=== PATIENT | male | born 1955 | race Caucasian/White ===

== ENCOUNTER 2021-10-12 17:54 | Inpatient (IN) ==
[2021-10-12 18:41] LABS: Basophils % 0.1 %; Eosinophils % 0.2 %; Hematocrit 38.1 % (37.5-50.1); Hemoglobin 12.5 g/dL (12.9-16.9); Immature Granulocytes % 0.5 % (0-4); Lymphocytes # 0.8 K/mcL (0.6-4.6); Lymphocytes % 10.1 %; Mean Corpuscular HGB Conc 32.8 g/dL (31.6-35.5); Mean Corpuscular Hemoglobin 31.1 pg (28.0-33.3); Mean Corpuscular Volume 94.8 fL (83.0-100.0); Mean Platelet Volume 9.3 fL (9.4-12.4); Monocytes # 0.6 K/mcL (0.0-1.3); Monocytes % 7.9 %; Neutrophils # 6.6 K/mcL (1.6-8.9); Platelet Count 134 K/mcL (140-400); Red Blood Count 4.02 M/mcL (4.19-5.50); Red Cell Distribution Width 12.4 % (11.5-14.5); Segmented Neutrophils % 81.2 %; White Blood Count 8.1 K/mcL (4.3-11.1)
[2021-10-12 18:59] LABS: Alanine Aminotransferase 7 Units/L (7-52); Albumin 3.9 g/dL (3.5-5.7); Albumin/Globulin Ratio 1.6 (1.1-2.2); Alkaline Phosphatase 32 Units/L (34-104); Aspartate Amino Transferase 12 Units/L (13-39); BUN/Creatinine Ratio 21 (6-26); Bilirubin,Total 0.7 mg/dL (0.3-1.0); Blood Urea Nitrogen 20 mg/dL (8-23); Calcium 9.1 mg/dL (8.6-10.3); Carbon Dioxide 27 mEq/L (23-29); Chloride 102 mEq/L (98-107); Globulin 2.4 g/dL (2.4-3.5); Glucose 87 mg/dL (70-105); Osmolality,Calculated 278 (280-300); Potassium 3.6 mEq/L (3.5-5.1); Sodium 133 mEq/L (136-145); Total Protein 6.3 g/dL (6.4-8.9); eGFR For African Americans > 60 (> 60); eGFR For Non-African Americans > 60 (> 60)
[2021-10-12 19:13] LABS: Bilirubin,Urine Negative (Negative); Blood,Urine Negative (Negative); Clarity,Urine Clear (Clear); Color,Urine Yellow (Yellow); Glucose,Urine (UA) >=1000 mg/dL (Normal); Ketones,Urine Negative (Negative); Leukocyte Esterase,Urine Negative (Negative); Mucus,Urine Few per lpf (None-Few); Nitrite,Urine Negative (Negative); PH,Urine 5.5 pH Units (5.0-8.0); Protein,Urine Trace mg/dL (Neg-Trace); RBC,Urine 0-3 per hpf (0-3); Specific Gravity,Urine > 1.030 (1.010-1.025); Squamous Epithelial Cell,Urine Few per hpf (None-Few); Urobilinogen,Urine Normal (Normal); WBC,Urine 0-3 per hpf (0-3)
[2021-10-13] MEDS ORDERED: Acetaminophen 325 MG TABLET PO PRN (02:56)
[2021-10-13] MEDS ORDERED: Ondansetron 4 MG/2 ML VIAL IVP PRN (02:56)
[2021-10-13] MEDS ORDERED: Naloxone 0.4 MG/ML INJ IVP PRN (02:56)
[2021-10-13] MEDS ORDERED: *HR* Dextrose 50 % in Water (Syg) 50 ML SYRINGE IVP PRN (02:59)
[2021-10-13] MEDS ORDERED: Dextrose Gel 15 GM/37.5 ML TUBE PO PRN ×2 (02:59)
[2021-10-13] MEDS ORDERED: D5% in Water 1,000 ML IVC PRN (02:59)
[2021-10-13 03:46] LABS: Basophils % 0.2 %; Eosinophils # 0.1 K/mcL (0.0-0.6); Eosinophils % 0.8 %; Hematocrit 39.1 % (37.5-50.1); Hemoglobin 12.7 g/dL (12.9-16.9); Immature Granulocytes % 0.3 % (0-4); Lymphocytes % 15.7 %; Mean Corpuscular HGB Conc 32.5 g/dL (31.6-35.5); Mean Corpuscular Hemoglobin 31.1 pg (28.0-33.3); Mean Corpuscular Volume 95.8 fL (83.0-100.0); Mean Platelet Volume 9.6 fL (9.4-12.4); Monocytes # 0.6 K/mcL (0.0-1.3); Monocytes % 8.7 %; Neutrophils # 4.9 K/mcL (1.6-8.9); Platelet Count 128 K/mcL (140-400); Red Blood Count 4.08 M/mcL (4.19-5.50); Red Cell Distribution Width 12.6 % (11.5-14.5); Segmented Neutrophils % 74.3 %; White Blood Count 6.6 K/mcL (4.3-11.1)
[2021-10-13 04:07] LABS: Alanine Aminotransferase 12 Units/L (7-52); Albumin 3.8 g/dL (3.5-5.7); Albumin/Globulin Ratio 1.5 (1.1-2.2); Alkaline Phosphatase 30 Units/L (34-104); Aspartate Amino Transferase 12 Units/L (13-39); BUN/Creatinine Ratio 21 (6-26); Bilirubin,Total 0.8 mg/dL (0.3-1.0); Blood Urea Nitrogen 18 mg/dL (8-23); Calcium 8.8 mg/dL (8.6-10.3); Carbon Dioxide 28 mEq/L (23-29); Chloride 102 mEq/L (98-107); Globulin 2.6 g/dL (2.4-3.5); Glucose 71 mg/dL (70-105); Magnesium 1.8 mg/dL (1.6-2.6); Osmolality,Calculated 284 (280-300); Phosphorous 2.4 mg/dL (2.7-4.5); Potassium 3.6 mEq/L (3.5-5.1); Sodium 137 mEq/L (136-145); Total Protein 6.4 g/dL (6.4-8.9); eGFR For African Americans > 60 (> 60); eGFR For Non-African Americans > 60 (> 60)
[2021-10-13] MEDS: Insulin LISPRO 300 UNITS/3 ML VIAL SUBQ SCH ×4 (08:39→20:01)
[2021-10-13] MEDS: Aspirin Enteric Coated 81 MG Tablet PO SCH (08:40)
[2021-10-13 08:46] LABS: ABG Base Excess 2 mEq/L (-2 to 3); ABG HCO3 27 mEq/L (21-27); ABG Oxygen Saturation 91 % (95-98); ABG PCO2 42 mmHg (35-45); ABG PH 7.42 pH Units (7.32-7.45); ABG PO2 59 mmHg (85-104); ABG TCO2 28 mEq/L (20-26)
[2021-10-13] MEDS ORDERED: Metoprolol XL (24 HR) Succ 50 MG TAB.ER.24H PO SCH (09:00)
[2021-10-13] MEDS: Carbidopa/Levodopa ER 50/200 TABLET PO SCH ×4 (10:33→20:03)
[2021-10-13] MEDS ORDERED: Ammonium Lactate 30 APPL/225 GM BOTTLE TP PRN (10:42)
[2021-10-13] MEDS: Ranolazine 500 MG TAB.ER.12H PO SCH (20:01)
[2021-10-13] MEDS: lamoTRIgine 100 MG TABLET PO SCH (20:02)
[2021-10-13] MEDS: Famotidine 20 MG TABLET PO SCH (20:03)
[2021-10-13] MEDS: Melatonin 3 MG TABLET PO SCH (20:03)
[2021-10-13] MEDS: lamoTRIgine 25 MG TABLET PO SCH (20:04)
[2021-10-13] MEDS: Amantadine Oral Soln 50 MG/5 ML UDC PO SCH (20:04)
[2021-10-13] MEDS ORDERED: Insulin DETEMIR 100 UNIT/ML X5UNITS SUBQ SCH ×2 (21:00)
[2021-10-14] MEDS: Insulin LISPRO 300 UNITS/3 ML VIAL SUBQ SCH ×4 (09:02→20:07)
[2021-10-14] MEDS: Finasteride 5 MG TABLET PO SCH (09:03)
[2021-10-14] MEDS: Cholecalciferol (D-3) 1,000 UNIT (25MCG) TABLET PO SCH (09:03)
[2021-10-14] MEDS: Carbidopa/Levodopa ER 50/200 TABLET PO SCH ×4 (09:03→20:04)
[2021-10-14] MEDS: Aspirin Enteric Coated 81 MG Tablet PO SCH (09:04)
[2021-10-14] MEDS: Metoprolol XL (24 HR) Succ 50 MG TAB.ER.24H PO SCH (09:05)
[2021-10-14] MEDS: Isosorbide MONOnitrate (24 HR) 60 MG TAB.ER.24H PO SCH (09:05)
[2021-10-14] MEDS: Famotidine 20 MG TABLET PO SCH ×2 (09:05→20:06)
[2021-10-14] MEDS: lamoTRIgine 25 MG TABLET PO SCH ×2 (09:06→20:04)
[2021-10-14] MEDS: Ranolazine 500 MG TAB.ER.12H PO SCH ×2 (09:06→20:06)
[2021-10-14] MEDS: lamoTRIgine 100 MG TABLET PO SCH ×2 (09:06→20:06)
[2021-10-14] MEDS: Loratadine 10 MG TABLET PO SCH (09:07)
[2021-10-14] MEDS: Amantadine Oral Soln 50 MG/5 ML UDC PO SCH (20:03)
[2021-10-14] MEDS: Melatonin 3 MG TABLET PO SCH (20:04)
[2021-10-14] MEDS ORDERED: Insulin DETEMIR 100 UNIT/ML X5UNITS SUBQ SCH (21:00)
[2021-10-15 01:30] LABS: Basophils % 0.3 %; Eosinophils # 0.1 K/mcL (0.0-0.6); Eosinophils % 1.9 %; Hematocrit 37.5 % (37.5-50.1); Hemoglobin 12.6 g/dL (12.9-16.9); Immature Granulocytes % 0.6 % (0-4); Lymphocytes # 0.8 K/mcL (0.6-4.6); Lymphocytes % 20.7 %; Mean Corpuscular HGB Conc 33.6 g/dL (31.6-35.5); Mean Corpuscular Hemoglobin 31.7 pg (28.0-33.3); Mean Corpuscular Volume 94.2 fL (83.0-100.0); Mean Platelet Volume 9.6 fL (9.4-12.4); Monocytes # 0.5 K/mcL (0.0-1.3); Neutrophils # 2.3 K/mcL (1.6-8.9); Platelet Count 152 K/mcL (140-400); Red Blood Count 3.98 M/mcL (4.19-5.50); Red Cell Distribution Width 12.3 % (11.5-14.5); Segmented Neutrophils % 62.5 %; White Blood Count 3.6 K/mcL (4.3-11.1)
[2021-10-15 01:43] LABS: BUN/Creatinine Ratio 25 (6-26); Blood Urea Nitrogen 26 mg/dL (8-23); Calcium 8.9 mg/dL (8.6-10.3); Carbon Dioxide 27 mEq/L (23-29); Chloride 103 mEq/L (98-107); Glucose 121 mg/dL (70-105); Osmolality,Calculated 288 (280-300); Potassium 4.3 mEq/L (3.5-5.1); Sodium 136 mEq/L (136-145); eGFR For African Americans > 60 (> 60); eGFR For Non-African Americans > 60 (> 60)
[2021-10-15] MEDS: Loratadine 10 MG TABLET PO SCH (09:39)
[2021-10-15] MEDS: Insulin LISPRO 300 UNITS/3 ML VIAL SUBQ SCH ×3 (09:39→16:15)
[2021-10-15] MEDS: Cholecalciferol (D-3) 1,000 UNIT (25MCG) TABLET PO SCH (09:39)
[2021-10-15] MEDS: Aspirin Enteric Coated 81 MG Tablet PO SCH (09:39)
[2021-10-15] MEDS: Metoprolol XL (24 HR) Succ 50 MG TAB.ER.24H PO SCH (09:40)
[2021-10-15] MEDS: Famotidine 20 MG TABLET PO SCH (09:40)
[2021-10-15] MEDS: Ranolazine 500 MG TAB.ER.12H PO SCH (09:40)
[2021-10-15] MEDS: Isosorbide MONOnitrate (24 HR) 60 MG TAB.ER.24H PO SCH (09:40)
[2021-10-15] MEDS: Finasteride 5 MG TABLET PO SCH (09:41)
[2021-10-15] MEDS: lamoTRIgine 100 MG TABLET PO SCH (09:41)
[2021-10-15] MEDS: lamoTRIgine 25 MG TABLET PO SCH (09:42)
[2021-10-15] MEDS: Carbidopa/Levodopa ER 50/200 TABLET PO SCH ×3 (10:12→16:15)
[2021-10-15 11:34] VITALS: BP 108/51; PULSE 95; TEMP 97.9; O2SAT 94
== END 2021-10-15 18:50 | disposition home or self-care (01) | DRG 177 ==
LOC: 2NENU 17:54 → EMEROOARM 17:54 → SUATTDRO 23:31 → 2NENU 10-13 00:56
PROVIDERS: ADMIT Internal Medicine; ATTEND Internal Medicine